=== PATIENT | female | born 1965 | race Caucasian/White ===

== ENCOUNTER 2021-03-23 08:30 | Outpatient (CLI) | payer BC, SELFPAY | END 2021-03-23 08:31 | PROVIDERS: PCP Internal Medicine | DX: Z23 Encounter for immunization (principal) | CPT/HCPCS: 0001A; 91300 ==

== ENCOUNTER 2021-04-14 14:48 | Outpatient (CLI) | payer BC, SELFPAY ==
--- NOTE | ~2021-04-14 | XR_ITS ---
XR chest 2V DATE: 04/14/2021 15:09 INDICATION: Acute diastolic congestive heart failure TECHNIQUE: PA and lateral views COMPARISON: 09/22/2015 portable AP chest FINDINGS: Borderline heart size. Aortic arch calcification. No hilar or mediastinal enlargement. N o pulmonary infiltrate or consolidation, pulmonary vascular congestion or pleural effusion or pneumot horax is detected. Diffuse osteopenia. IMPRESSION: Borderline heart size Aortic calcification Diffuse osteopenia Reviewed, dictated and finalized at location B.
[2021-04-14 15:49] LABS: Anion Gap 8 mmol/L (8-16); Blood Urea Nitrogen 17 mg/dL (7-17); Carbon Dioxide 34 mmol/L (22-30); Chloride 94 mmol/L (98-107); Estimated Glomerular Filt Rate 51; Glucose 129 mg/dL (65-105); Potassium 4.6 mmol/L (3.4-5.0); Sodium 136 mmol/L (137-145)
[2021-04-14 15:58] LABS: NT Pro B Type Natriuretic Pept 198 pg/mL (5-100)
== END 2021-04-14 14:49 | disposition home or self-care (01) ==
PROVIDERS: PCP Internal Medicine; Visit Provider Internal Medicine
DX: I50.31 Acute diastolic (congestive) heart failure (principal); R09.89 Other specified symptoms and signs involving the circulatory and respiratory systems; I70.0 Atherosclerosis of aorta; M85.88 Other specified disorders of bone density and structure, other site
CPT/HCPCS: 36415; 71046; 80048; 83880

== ENCOUNTER → 2021-11-29 02:06 | Outpatient (CLI) | payer BC, SELFPAY ==
[2021-11-29 20:09] LABS: SARS-CoV-2 RNA PCR Negative
== END ==
PROVIDERS: PCP Internal Medicine; Visit Provider Internal Medicine Gastroenterology
DX: R68.89 Other general symptoms and signs (principal); Z01.812 Encounter for preprocedural laboratory examination; Z20.822 Contact with and (suspected) exposure to COVID-19
CPT/HCPCS: C9803; U0003; U0005

== ENCOUNTER 2021-12-02 02:15 | Day surgery (SDC) | payer BC, SELFPAY ==
[2021-11-14 14:51] VITALS: BMI 35.0
--- NOTE | 2021-12-01 13:16 | PM.HPGS ---
History of Present Illness History of Present Illness Consent: Risks, benefits, and alternatives have been discussed and questions answered. Patient agrees to proceed with procedure. Chief complaint: hx of colon polyps Narrative: Isablele Garnett is a 56 year old female was referred for colon cancer screening. Her last colonoscopy was 6 years ago. She has a history that she apparently had a polyp removed at 1 time Review of Systems Review of Systems: All systems reviewed & are unremarkable except as noted in HPI and below PMFSH Past Medical History Medical History Abnormal ankle brachial index (UNRULY) Abnormal TSH Adrenal adenoma Atopic dermatitis Benign essential hypertension Bipolar disorder BMI 35.0-35.9,adult BMI 36.0-36.9,adult BMI 37.0-37.9, adult Borderline abnormal TFTs CHF (congestive heart failure) Chronic low back pain Diabetes mellitus type 2, insulin dependent Encounter for preventive health examination Encounter for routine adult health examination with abnormal findings Encounter for routine adult health examination without abnormal findings Encounter for screening mammogram for malignant neoplasm of breast Exposure to COVID-19 virus Follow up Hx of acute congestive heart failure Hyperlipidemia Hyponatremia Left breast mass Lung nodule Mass of right ear Nummular eczema On [facility] drug therapy LUIS on CPAP Palpitations Palpitations Sacroiliitis Trigger thumb, right thumb Valvular heart disease Family History Family History Mother Family history of mental disorder Family history of cataracts Hypertension Family history of elevated blood lipids Family history of arthritis Father Hypertension Family history of alcoholism Other Cerebrovascular accident Diabetes mellitus Social History Social History Smoking packs per day: 3 Smoking cigarettes per day: 60.0 Years smoked: 37 Smoking pack-years: 111.00 Smoking status: Former smoker Tobacco type: cigarettes Smoking end date: 11/26/09 Alcohol intake: current Drinks per week: 3 Living arrangements: with family Spiritual care concerns: No Meds Home Medications and Allergies Home Medications Medication Instructions Recorded Confirmed Type cholecalciferol (vitamin D3) 125 5,000 unit PO DAILY 01/01/20 12/02/21 History mcg (5,000 unit) capsule lamotrigine 200 mg tablet 400 mg PO DAILY tablet 01/01/20 12/02/21 History multivitamin 1 tablet PO DAILY 01/01/20 12/02/21 History risperidone 4 mg tablet 4 mg PO BID 01/01/20 12/02/21 History vitamin B complex 1 tablet PO DAILY 01/01/20 12/02/21 History insulin aspart U-100 100 unit/mL 6 unit SUB-Q TID 08/13/20 12/02/21 History (3 mL) subcutaneous pen gabapentin 300 mg capsule 600 mg PO TID cap 12/10/20 12/02/21 History insulin degludec 200 unit/mL (3 68 unit SUB-Q DAILY ml 12/10/20 12/02/21 History mL) subcutaneous pen omega-3 fatty acids 1,000 mg 2,000 mg PO BID cap 12/10/20 12/02/21 History capsule amlodipine 10 mg tablet See Rx Instructions .ROUTE 01/17/21 12/02/21 Rx .COMPLEX #90 tablet losartan 100 mg tablet See Rx Instructions .ROUTE 01/25/21 12/02/21 Rx .COMPLEX #90 tablet simvastatin 40 mg tablet See Rx Instructions .ROUTE 01/25/21 12/02/21 Rx .COMPLEX #90 tablet mometasone 0.1 % topical cream 1 applic TOPICAL DAILY #45 g 01/31/21 12/02/21 Rx fluvoxamine 100 mg tablet 300 mg PO QHS tablet 04/07/21 12/02/21 History melatonin 5 mg tablet 10 mg PO QHS tablet 04/07/21 12/02/21 History trazodone 100 mg tablet 250 mg PO QHS PRN tablet 04/14/21 12/02/21 History furosemide 40 mg tablet 40 mg PO QAM #90 tablet 05/17/21 12/02/21 Rx quetiapine 200 mg tablet 400 mg PO QHS tablet 06/09/21 12/02/21 History spironolactone 25 mg tablet See Rx Instructions .ROUTE 06/30/21 12/02/21 Rx .COMPLEX
--- NOTE | 2021-12-02 07:53 | WPDANESEPPF ---
Anes - Initial Pre Proc Eval Procedure: Operation Date: 12/02/21 11:00 Proposed Procedures p Screening Colonoscopy - Akira Chery MD Date/Time: 12/02/21 07:53 Surgeon: Akira Chery MD Pre Op Diagnosis: hx of colon polyps Patient Data Age: 56 Gender: F Height: 1.57 m Weight: 87 kg Allergies Allergy/AdvReac Type Severity Reaction Status Date / Time prednisone AdvReac Severe psych sx Verified 12/02/21 10:16 Home Medications Medication Instructions Recorded Confirmed Type cholecalciferol (vitamin D3) 125 5,000 unit PO DAILY 01/01/20 11/14/21 History mcg (5,000 unit) capsule lamotrigine 200 mg tablet 400 mg PO DAILY tablet 01/01/20 11/14/21 History multivitamin 1 tablet PO DAILY 01/01/20 11/14/21 History risperidone 4 mg tablet 4 mg PO BID 01/01/20 11/14/21 History vitamin B complex 1 tablet PO DAILY 01/01/20 11/14/21 History insulin aspart U-100 100 unit/mL 6 unit SUB-Q TID 08/13/20 11/14/21 History (3 mL) subcutaneous pen gabapentin 300 mg capsule 600 mg PO TID cap 12/10/20 11/14/21 History insulin degludec 200 unit/mL (3 68 unit SUB-Q DAILY ml 12/10/20 11/14/21 History mL) subcutaneous pen omega-3 fatty acids 1,000 mg 2,000 mg PO BID cap 12/10/20 11/14/21 History capsule amlodipine 10 mg tablet See Rx Instructions .ROUTE 01/17/21 11/14/21 Rx .COMPLEX #90 tablet losartan 100 mg tablet See Rx Instructions .ROUTE 01/25/21 11/14/21 Rx .COMPLEX #90 tablet simvastatin 40 mg tablet See Rx Instructions .ROUTE 01/25/21 11/14/21 Rx .COMPLEX #90 tablet mometasone 0.1 % topical cream 1 applic TOPICAL DAILY #45 g 01/31/21 11/14/21 Rx fluvoxamine 100 mg tablet 300 mg PO QHS tablet 04/07/21 11/14/21 History melatonin 5 mg tablet 10 mg PO QHS tablet 04/07/21 11/14/21 History trazodone 100 mg tablet 250 mg PO QHS PRN tablet 04/14/21 11/14/21 History furosemide 40 mg tablet 40 mg PO QAM #90 tablet 05/17/21 11/14/21 Rx quetiapine 200 mg tablet 400 mg PO QHS tablet 06/09/21 11/14/21 History spironolactone 25 mg tablet See Rx Instructions .ROUTE 06/30/21 11/14/21 Rx .COMPLEX #120 tablet carvedilol 6.25 mg tablet 6.25 mg PO Q12H #180 tablet 08/08/21 11/14/21 Rx levothyroxine 100 mcg tablet See Rx Instructions .ROUTE 11/07/21 11/14/21 Rx .COMPLEX #90 tablet sitagliptin-metformin [Janumet] tablet 11/14/21 History Patient hx anesthesia problems: none Family hx anesthesia problems: none Results Review: All pre-operative results and documents have been reviewed as part of the pre-operative evaluation. [facility] Past Medical History Medical History (Updated 12/01/21 @ 13:16 by Akira Chery MD) Abnormal ankle brachial index (UNRULY) Abnormal TSH Adrenal adenoma Atopic dermatitis Benign essential hypertension Bipolar disorder BMI 35.0-35.9,adult BMI 36.0-36.9,adult BMI 37.0-37.9, adult Borderline abnormal TFTs CHF (congestive heart failure) Chronic low back pain Diabetes mellitus type 2, insulin dependent Encounter for preventive health examination Encounter for routine adult health examination with abnormal findings Encounter for routine adult health examination without abnormal findings Encounter for screening mammogram for malignant neoplasm of breast Exposure to COVID-19 virus Follow up Hx of acute congestive heart failure Hyperlipidemia Hyponatremia Left breast mass Lung nodule Mass of right ear Nummular eczema On [facility] drug therapy LUIS on CPAP Palpitations Palpitations Sacroiliitis Trigger thumb, right thumb Valvular heart disease Family History Family History Mother Family history of mental disorder Family history of cataracts Hypertension Family history of elevated blood lipids Family history of arthritis Father Hypertension Family history of alcoholism Other Cerebrovascular accident Diabetes mellitus Social History Social History Smok
[2021-12-02 10:17] VITALS: BP 133/58; PULSE 78; RESP 20; TEMP 36.1; O2SAT 97
[2021-12-02] MEDS: LACTATED RINGERS 1,000 ML 150 ML IV CONT (10:30)
[2021-12-02 10:34] LABS: Glucose Point of Care 135 mg/dl (65-105)
[2021-12-02 11:08] VITALS: BP 110/45; PULSE 69; RESP 20; O2SAT 97
[2021-12-02 11:17] LABS: Glucose Point of Care 141 mg/dl (65-105)
[2021-12-02 11:18] VITALS: BP 131/63; PULSE 74; RESP 16; O2SAT 99
[2021-12-02 11:28] VITALS: BP 138/52; PULSE 73; RESP 18; O2SAT 100
== END 2021-12-02 11:42 | disposition home or self-care (01) ==
PROVIDERS: PCP Internal Medicine; Visit Provider Internal Medicine Gastroenterology
PROC: 0DJD8ZZ Inspection of Lower Intestinal Tract, Via Natural or Artificial Opening Endoscopic (ICD-10-PCS; CPT 45378; principal; 2021-12-02 11:00)
DX: Z12.11 Encounter for screening for malignant neoplasm of colon (principal); K63.5 Polyp of colon; K57.30 Diverticulosis of large intestine without perforation or abscess without bleeding; E03.9 Hypothyroidism, unspecified; Z79.4 Long term (current) use of insulin; D35.00 Benign neoplasm of unspecified adrenal gland; I10 Essential (primary) hypertension; F31.9 Bipolar disorder, unspecified; I11.0 Hypertensive heart disease with heart failure; I50.9 Heart failure, unspecified; E11.9 Type 2 diabetes mellitus without complications; E78.5 Hyperlipidemia, unspecified; E87.1 Hypo-osmolality and hyponatremia; G47.33 Obstructive sleep apnea (adult) (pediatric); R00.2 Palpitations; Z87.891 Personal history of nicotine dependence; E66.9 Obesity, unspecified; Z68.35 Body mass index [BMI] 35.0-35.9, adult; L30.9 Dermatitis, unspecified
CPT/HCPCS: 45380; 82948; 88305; J2704; J7120

== ENCOUNTER 2024-03-10 02:21 | Day surgery (SDC) | payer BC, SELFPAY ==
[2024-02-25 11:00] VITALS: BMI 31.5
[2024-03-10 10:12] VITALS: BP 138/56; PULSE 88; RESP 18; TEMP 35.9; O2SAT 99
--- NOTE | 2024-03-10 10:15 | WPDANESEPPF ---
Anes - Initial Pre Proc Eval Procedure: Operation Date: 03/10/24 11:00 Proposed Procedures p Esophagogastroduodenoscopy & Colonoscopy - Narinder Hannah MD Date/Time: 03/10/24 10:15 Surgeon: Narinder Hannah MD Pre Op Diagnosis: anemia unspecified Patient Data Age: 58 Gender: F Height: 1.57 m Weight: 78.2 kg Allergies Allergy/AdvReac Type Severity Reaction Status Date / Time prednisone AdvReac Severe psych sx Verified 03/10/24 10:07 Home Medications Medication Instructions Recorded Confirmed Type lamotrigine 200 mg tablet 400 mg PO DAILY 01/01/20 02/25/24 History multivitamin 1 tablet PO DAILY 01/01/20 02/25/24 History vitamin B complex 1 tablet PO DAILY 01/01/20 02/25/24 History gabapentin 300 mg capsule 600 mg PO TID 12/10/20 02/25/24 History fluvoxamine 100 mg tablet 300 mg PO DAILY 04/07/21 02/25/24 History trazodone 100 mg tablet 250 mg PO QHS PRN Insomnia 04/14/21 02/25/24 History cholecalciferol (vitamin D3) 125 5,000 unit PO DAILY #90 caps 05/01/22 02/25/24 Rx mcg (5,000 unit) capsule omega-3 fatty acids 1,000 mg 2,000 mg PO BID 90 days #360 caps 05/01/22 02/25/24 Rx capsule quetiapine 200 mg tablet (Seroquel) 400 mg PO QHS 04/03/23 02/25/24 History risperidone 2 mg tablet 4 mg PO BID 04/03/23 02/25/24 History losartan 100 mg tablet See Rx Instructions .Route 06/25/23 02/25/24 Rx .COMPLEX #90 tabs amlodipine 5 mg tablet See Rx Instructions .Route 12/21/23 02/25/24 Rx .COMPLEX #90 tabs aspirin 81 mg tablet,delayed 81 mg PO DAILY #90 tabs 12/21/23 02/25/24 Rx release (Adult Low Dose Aspirin) blood sugar diagnostic (OneTouch #100 ea 12/21/23 02/21/24 Rx Verio test strips) carvedilol 6.25 mg tablet See Rx Instructions .Route 12/21/23 02/25/24 Rx .COMPLEX #180 tabs furosemide 20 mg tablet See Rx Instructions .Route 12/21/23 02/25/24 Rx .COMPLEX #90 tabs levothyroxine 100 mcg tablet See Rx Instructions .Route 12/21/23 02/25/24 Rx .COMPLEX #90 tabs rosuvastatin 10 mg tablet See Rx Instructions .Route 12/21/23 02/25/24 Rx .COMPLEX #90 tabs insulin lispro 200 unit/mL (3 mL) 6 unit (0.03 mL) subcut TID #6 mL 12/25/23 02/25/24 Rx subcutaneous pen semaglutide 2 mg/dose (8 mg/3 mL) 2 mg subcut WEEKLY 01/10/24 02/25/24 History subcutaneous pen injector (Ozempic) empagliflozin 10 mg-metformin ER 1 tablet PO DAILY #90 ea 03/03/24 03/10/24 Rx 1,000 mg tablet,extended release 24hr (Synjardy XR) insulin degludec 200 unit/mL (3 See Rx Instructions .Route 03/03/24 03/10/24 Rx mL) subcutaneous pen (Tresiba .COMPLEX #27 mL FlexTouch U-200 insulin) Patient hx anesthesia problems: none Family hx anesthesia problems: none Results Review: All pre-operative results and documents have been reviewed as part of the pre-operative evaluation. [facility] Past Medical History Medical History (Updated 02/21/24 @ 09:34 by Narinder Hannah MD) Abnormal ankle brachial index (UNRULY) Adrenal adenoma Anemia of chronic disease Atopic dermatitis Benign essential hypertension Bipolar disorder BMI 32.0-32.9,adult BMI 33.0-33.9,adult BMI 34.0-34.9,adult BMI 35.0-35.9,adult BMI 36.0-36.9,adult BMI 37.0-37.9, adult CHF (congestive heart failure) CHF (congestive heart failure), NYHA class II CHF exacerbation Chronic anemia Chronic low back pain CKD (chronic kidney disease) Closed nondisplaced fracture of metatarsal bone of right foot Colon, diverticulosis Diabetes mellitus type 2, insulin dependent Dizziness Encounter for preventive health examination Encounter for routine adult health examination with abnormal findings Encounter for routine adult health examination without abnormal findings Encounter for screening mammogram for malignant neoplasm of breast Exposure to COVID-19 virus Follow up Hx of acute congestive heart failure Hyperlipidemia Hyponatremia Hypothyroidism (acquired) Left ankle pain Left breast mass Low hemoglobin and low hem
[2024-03-10] MEDS: LACTATED RINGERS 1,000 ML 150 ML IV CONT (10:27)
[2024-03-10 10:30] LABS: Glucose Point of Care 138 mg/dl (65-105)
--- NOTE | 2024-03-10 10:52 | WPDHPUPDATE1 ---
History and Physical Update Update Date/Time: 03/10/24 10:52 History and Physical has been reviewed, including an updated exam of the patient. There are NO changes in the patient's condition. Risks, benefits, and alternatives have been discussed and questions answered. Patient agrees to proceed with procedure.
[2024-03-10] MEDS: BENZOCAINE (*SP) 60 ML SPRAY CAN (HURRICAINE) 1 SPRAY MUCOUS MEM (10:57)
[2024-03-10 11:23] VITALS: BP 94/51; PULSE 75; RESP 20; O2SAT 100
[2024-03-10 11:27] LABS: Glucose Point of Care 111 mg/dl (65-105)
[2024-03-10 11:33] VITALS: BP 118/70; PULSE 77; RESP 16; O2SAT 100
[2024-03-10 11:43] VITALS: BP 115/72; PULSE 73; RESP 20; O2SAT 100
== END 2024-03-10 11:53 | disposition home or self-care (01) ==
PROVIDERS: PCP Internal Medicine; Visit Provider Internal Medicine Gastroenterology
PROC: 0DJ08ZZ Inspection of Upper Intestinal Tract, Via Natural or Artificial Opening Endoscopic (ICD-10-PCS; CPT 43235; principal; 2024-03-10 11:00)
DX: D64.9 Anemia, unspecified (principal); K29.50 Unspecified chronic gastritis without bleeding; K64.8 Other hemorrhoids; K31.89 Other diseases of stomach and duodenum; K57.30 Diverticulosis of large intestine without perforation or abscess without bleeding; I12.9 Hypertensive chronic kidney disease with stage 1 through stage 4 chronic kidney disease, or unspecified chronic kidney disease; N18.9 Chronic kidney disease, unspecified; E11.9 Type 2 diabetes mellitus without complications; I11.9 Hypertensive heart disease without heart failure; E78.5 Hyperlipidemia, unspecified; E87.1 Hypo-osmolality and hyponatremia; E03.9 Hypothyroidism, unspecified; G47.33 Obstructive sleep apnea (adult) (pediatric); I38 Endocarditis, valve unspecified; F31.9 Bipolar disorder, unspecified; M54.50 Low back pain, unspecified; G89.29 Other chronic pain; E66.9 Obesity, unspecified; Z68.30 Body mass index [BMI] 30.0-30.9, adult; Z79.82 Long term (current) use of aspirin; Z79.4 Long term (current) use of insulin; Z79.85 Long-term (current) use of injectable non-insulin antidiabetic drugs; Z99.89 Dependence on other enabling machines and devices; Z87.891 Personal history of nicotine dependence; Z86.018 Personal history of other benign neoplasm; Z82.49 Family history of ischemic heart disease and other diseases of the circulatory system
CPT/HCPCS: 43239; 45378; 82948; 88305; J2704; J7120